=== PATIENT | female | born 1990 | race Caucasian/White ===

== ENCOUNTER 2017-04-02 03:40 | Emergency (ER) | payer SELFPAY ==
[~2017-04-02] VITALS: Ht 157.5 cm; Wt 99.1 kg
[~2017-04-02 03:40] MED LIST: NOCURR
[2017-04-02 03:41] VITALS: BP 156/93
== END 2017-04-02 05:22 | disposition left against medical advice (07) ==
LOC: EMS 03:41
DX: H92.02 Otalgia, left ear (principal); Z53.21 Procedure and treatment not carried out due to patient leaving prior to being seen by health care provider